=== PATIENT | female | born 1950 | race Caucasian/White ===

== ENCOUNTER → 2017-11-24 15:10 | Outpatient (CLI) | payer BC | END | disposition home or self-care (01) | LOC: D.CT 15:10 | DX: K76.9 Liver disease, unspecified (principal) ==

== ENCOUNTER 2017-12-01 07:33 | Day surgery (SDC) | payer BC ==
[~2017-12-01] VITALS: Ht 170.2 cm; Wt 84.1 kg
--- NOTE | ~2017-12-01 | OP ---
PATIENT NAME: JUSTEN WIN MEDICAL RECORD: [id number] :54 LOCATION:[facility] ADMISSION DATE: SURGEON: JHONNY DEL ROSARIO DO DATE OF OPERATION: 12/01/2017 PROCEDURE: EGD with biopsies. INDICATIONS FOR PROCEDURE: Nausea, decrease in appetite, loss of weight, cirrhosis with portal hypertension. SCOPE: Olympus video gastroscope. MEDICATIONS: Propofol IV per anesthesia. ESTIMATED BLOOD LOSS: Minimal. COMPLICATIONS: None. FINDINGS: Informed consent was given. The patient was made comfortable with the above medication. After reaching an adequate level of sedation by slow IV push, the patient was placed on her left side. The endoscope was then advanced under direct visualization through the mouth to the second portion of the duodenum. The upper and middle esophagus appeared normal. In the middle to distal thirds of the esophagus, there were some grade II esophageal varices without bleeding stigmata. No bands were placed on this examination on this date. At the GE junction, there were some mild changes consistent with LA class B reflux-induced esophagitis. The endoscope was advanced beyond the GE junction into the stomach and retroflexed to view the cardia, where a small sliding hiatal hernia was present. The entire stomach displayed portal hypertensive gastropathy. There was one site that appeared that it had recently oozed some blood, but there was no active bleeding visualized. Two cold forceps biopsies were taken to submit for histology and to rule out H. pylori. The endoscope was advanced beyond the pylorus into the duodenum where there was some duodenitis and portal hypertensive duodenopathy. The endoscope was advanced down to the second portion where there was still some mild evidence of portal hypertensive duodenopathy, but this was improved from the bulb's appearance. The endoscope was then withdrawn from the patient. The patient tolerated the procedure well and there were no complications. IMPRESSION: 1. Grade II esophageal varices without bleeding stigmata. 2. LA class B reflux-induced esophagitis. 3. Portal hypertensive gastropathy and duodenopathy. PLAN AND RECOMMENDATIONS: 1. Discharge home when recovery parameters are met. 2. Follow up biopsy specimen results. 3. Continue low sodium diet. 4. Continue current medications. 5. Add Protonix 40 mg daily while awaiting biopsy results and continue this for 8 weeks. 6. Repeat upper endoscopy in 1 year for esophageal varices surveillance. TRANSINT:[id number] Voice Confirmation ID: [id number] DOCUMENT ID: [id number] OPERATIVE REPORT [id number] JUSTEN WIN,JHONNY Gilmore DO at 0739 CC: [id number] DICTATION DATE: 12/01/17920 METAL GAUGE MAKER: 12/01/17 1119 [facility] 12/01/17 [place] [id number]
[2017-12-01 08:03] VITALS: BP 131/71; Ht 170.2 cm; Wt 84.1 kg
[2017-12-01 09:13] LABS: BASOPHILS 0.2 % (0-2); EOSINOPHILS 1.7 % (0-7); HEMATOCRIT 34.6 % (36.0-48.0); HEMOGLOBIN 11.9 g/dL (12-16); IMMATURE GRANULOCYTES 0.2 % (0-5); LYMPHOCYTES 19.1 % (15-50); MCH 34.4 pg (26.0-34.0); MCHC 34.4 g/dL (31.0-37.0); MEAN PLATELET VOLUME 11.6 fL (7.4-10.4); MONOCYTES 12.7 % (2-11); NEUTROPHILS 66.1 % (40-80); PLATELET COUNT 72 10x3/uL (130-400); RBC 3.46 10x6/uL (4.00-5.40); RDW 14.1 % (11.5-14.5)
[2017-12-01 09:20] LABS: INR 1.59 (0.85-1.17); PROTIME 18.4 SECONDS (11.6-15.0)
[2017-12-01] MEDS ORDERED: ZOFRAN4 MG PO (09:40)
== END 2017-12-01 10:25 | disposition home or self-care (01) ==
LOC: D.OPS 07:33
PROVIDERS: Internal Medicine Gastroenterology
DX: K76.6 Portal hypertension (principal); K31.89 Other diseases of stomach and duodenum; I85.10 Secondary esophageal varices without bleeding; R63.4 Abnormal weight loss; Z01.812 Encounter for preprocedural laboratory examination

== ENCOUNTER 2017-12-03 07:26 | Outpatient (CLI) | payer BC ==
[~2017-12-03] VITALS: Ht 170.2 cm; Wt 84.1 kg
[~2017-12-03 07:26] MED LIST: ZOFRAN4 MG PO
[2017-12-03] MEDS ORDERED: PROTONIX40 MG PO (08:19)
[2017-12-03 08:26] VITALS: Ht 170.2 cm; Wt 84.1 kg
[2017-12-03 09:25] LABS: BASOPHILS 0.3 % (0-2); EOSINOPHILS 1.3 % (0-7); HEMATOCRIT 35.6 % (36.0-48.0); HEMOGLOBIN 12.1 g/dL (12-16); IMMATURE GRANULOCYTES 0.3 % (0-5); LYMPHOCYTES 16.5 % (15-50); MCH 34.5 pg (26.0-34.0); MCV 101.4 fL (80.0-100.0); MEAN PLATELET VOLUME 11.6 fL (7.4-10.4); MONOCYTES 14.1 % (2-11); NEUTROPHILS 67.5 % (40-80); PLATELET COUNT 70 10x3/uL (130-400); RBC 3.51 10x6/uL (4.00-5.40); RDW 14.1 % (11.5-14.5); WBC 3.8 10x3/uL (4.8-10.8)
[2017-12-03 09:28] LABS: CALC OSMOLALITY 279 mosm/kg (275-300); CALCIUM 7.9 mg/dL (8.5-10.1); CARBON DIOXIDE 26.3 mmol/L (21.0-32.0); CHLORIDE - SERUM 108 mmol/L (98-107); CREATININE - SERUM 0.6 mg/dL (0.6-1.3); GLUCOSE 139 mg/dL (74-106); POTASSIUM - SERUM 4.2 mmol/L (3.5-5.1); SODIUM 140 mmol/L (136-145); UREA NITROGEN 10 mg/dL (7-18); eGFR NON AFRICAN AMERICAN > 90 mL/min (90-120)
[2017-12-03 09:29] LABS: APTT 34.5 SECONDS (22.8-39.4); INR 1.31 (0.85-1.17); PROTIME 15.9 SECONDS (11.6-15.0)
== END 2017-12-03 13:00 | disposition home or self-care (01) ==
LOC: D.OPS 07:26 → D.SP 10:00 → D.OPS 10:00
PROVIDERS: Radiology Diagnostic Radiology
DX: R16.0 Hepatomegaly, not elsewhere classified (principal); Z53.9 Procedure and treatment not carried out, unspecified reason; K74.60 Unspecified cirrhosis of liver; Z01.812 Encounter for preprocedural laboratory examination

== ENCOUNTER → 2017-12-10 08:20 | Outpatient (CLI) | payer BC ==
[~2017-12-10 08:20] MED LIST changes: +ALDACTONE25 MG PO; +ALDACTONE50 MG PO; +DIPHENHIST25 MG PO; +FLAGYL250 MG PO; +FLORAJEN3 CAPS460 MG PO; +FUROSEMIDE PO; +LASIX20 MG PO; +LEVAQUIN500 MG PO; +MONODOX100 MG PO; +PEPTO-BISMOL262 M1 PO; +PREDNISONE10 MG PO; +PREDNISONE50 MG PO; +PROTONIX40 MG PO
[2017-12-10 10:32] VITALS: BP 121/65; BMI 29.0
[2017-12-10 11:32] LABS: HEMATOCRIT 34.3 % (36.0-48.0); HEMOGLOBIN 11.8 g/dL (12-16); MCH 34.4 pg (26.0-34.0); MCHC 34.4 g/dL (31.0-37.0); MEAN PLATELET VOLUME 12.5 fL (7.4-10.4); PLATELET COUNT 67 10x3/uL (130-400); RBC 3.43 10x6/uL (4.00-5.40); RDW 14.6 % (11.5-14.5); WBC 2.9 10x3/uL (4.8-10.8)
[2017-12-10 11:39] LABS: CALC OSMOLALITY 276 mosm/kg (275-300); CALCIUM 8.5 mg/dL (8.5-10.1); CHLORIDE - SERUM 105 mmol/L (98-107); CREATININE - SERUM 0.8 mg/dL (0.6-1.3); POTASSIUM - SERUM 4.8 mmol/L (3.5-5.1); SODIUM 135 mmol/L (136-145); UREA NITROGEN 12 mg/dL (7-18); eGFR NON AFRICAN AMERICAN 76 mL/min (90-120)
[2017-12-10 11:40] LABS: GLUCOSE 231 mg/dL (74-106)
[2017-12-10 12:06] LABS: INR 1.39 (0.85-1.17); PROTIME 16.6 SECONDS (11.6-15.0)
[2017-12-10 12:07] LABS: APTT 34.2 SECONDS (22.8-39.4)
[2017-12-10 12:35] LABS: LYMPHOCYTES 17 % (15-50); NEUTROPHILS 82 % (40-80); PLATELET ESTIMATE DECREASED
== END | disposition home or self-care (01) ==
LOC: D.OPS 08:20 → D.SP 09:00 → D.CT 09:00 → D.OPS 11:00 → D.CT 12-11 13:00
PROVIDERS: General Practice
DX: R16.0 Hepatomegaly, not elsewhere classified (principal); Z01.812 Encounter for preprocedural laboratory examination

== ENCOUNTER 2017-12-17 18:49 | Inpatient (IN) | payer BC, MEDICARE ==
[~2017-12-17] VITALS: Ht 170.2 cm; Wt 89.1 kg
[~2017-12-17 18:49] MED LIST changes: -ALDACTONE25 MG PO; -ALDACTONE50 MG PO; -FLORAJEN3 CAPS460 MG PO; -FUROSEMIDE PO; -LASIX20 MG PO; -LEVAQUIN500 MG PO; -PREDNISONE10 MG PO
[2017-12-17 19:30] LABS: BASOPHILS 0.5 % (0-2); EOSINOPHILS 1.8 % (0-7); HEMATOCRIT 37.1 % (36.0-48.0); HEMOGLOBIN 12.5 g/dL (12-16); IMMATURE GRANULOCYTES 0.2 % (0-5); LYMPHOCYTES 21.1 % (15-50); MCH 34.8 pg (26.0-34.0); MCHC 33.7 g/dL (31.0-37.0); MCV 103.3 fL (80.0-100.0); MEAN PLATELET VOLUME 10.5 fL (7.4-10.4); NEUTROPHILS 61.4 % (40-80); RBC 3.59 10x6/uL (4.00-5.40); RDW 14.5 % (11.5-14.5); WBC 4.4 10x3/uL (4.8-10.8)
[2017-12-17 19:48] LABS: ALBUMIN 2.4 g/dL (3.4-5.0); ALKALINE PHOSPHATASE 119 U/L (46-116); ALT (SGPT) 30 U/L (10-68); AMYLASE - SERUM 50 U/L (25-115); BILIRUBIN - TOTAL 1.47 mg/dL (0.2-1.3); CALC OSMOLALITY 277 mosm/kg (275-300); CALCIUM 8.2 mg/dL (8.5-10.1); CARBON DIOXIDE 28.1 mmol/L (21.0-32.0); CHLORIDE - SERUM 105 mmol/L (98-107); CREATININE - SERUM 0.8 mg/dL (0.6-1.3); GLUCOSE 92 mg/dL (74-106); LIPASE 178 U/L (73-393); POTASSIUM - SERUM 3.7 mmol/L (3.5-5.1); PROTEIN - SERUM 6.8 g/dL (6.4-8.2); SODIUM 140 mmol/L (136-145); UREA NITROGEN 10 mg/dL (7-18); eGFR NON AFRICAN AMERICAN 76 mL/min (90-120)
[2017-12-17 20:11] LABS: PLATELET COUNT 83 10x3/uL (130-400)
[2017-12-17 20:18] LABS: APPEARANCE CLEAR (CLEAR); BILIRUBIN NEGATIVE (NEGATIVE); COLOR DK YELLOW (YELLOW); GLUCOSE NEGATIVE (NEGATIVE); KETONE NEGATIVE (NEGATIVE); NITRITE NEGATIVE (NEGATIVE); PROTEIN NEGATIVE (NEGATIVE); SPECIFIC GRAVITY 1.015 (1.005-1.020); UROBILINOGEN NORMAL (NORMAL)
[2017-12-17 20:18] LABS: APTT 34.5 SECONDS (22.8-39.4); INR 1.42 (0.85-1.17); PROTIME 16.9 SECONDS (11.6-15.0)
[2017-12-18] VITALS (8 sets, daily range): BP systolic 122–149; BP diastolic 39–85; Ht 170.2 cm; Wt 89.1 kg
[2017-12-18 06:11] LABS: BASOPHILS 0.3 % (0-2); EOSINOPHILS 1.8 % (0-7); HEMATOCRIT 34.3 % (36.0-48.0); HEMOGLOBIN 11.3 g/dL (12-16); IMMATURE GRANULOCYTES 0.3 % (0-5); LYMPHOCYTES 19.9 % (15-50); MCH 34.1 pg (26.0-34.0); MCHC 32.9 g/dL (31.0-37.0); MCV 103.6 fL (80.0-100.0); MEAN PLATELET VOLUME 10.6 fL (7.4-10.4); MONOCYTES 16.2 % (2-11); NEUTROPHILS 61.5 % (40-80); PLATELET COUNT 79 10x3/uL (130-400); RBC 3.31 10x6/uL (4.00-5.40); RDW 14.8 % (11.5-14.5); WBC 3.3 10x3/uL (4.8-10.8)
[2017-12-18 06:42] LABS: ALKALINE PHOSPHATASE 91 U/L (46-116); ALT (SGPT) 27 U/L (10-68); CALC OSMOLALITY 276 mosm/kg (275-300); CALCIUM 7.4 mg/dL (8.5-10.1); CARBON DIOXIDE 24.9 mmol/L (21.0-32.0); CHLORIDE - SERUM 107 mmol/L (98-107); CREATININE - SERUM 0.8 mg/dL (0.6-1.3); GLUCOSE 80 mg/dL (74-106); POTASSIUM - SERUM 3.5 mmol/L (3.5-5.1); PROTEIN - SERUM 5.8 g/dL (6.4-8.2); SODIUM 140 mmol/L (136-145); UREA NITROGEN 10 mg/dL (7-18); eGFR NON AFRICAN AMERICAN 76 mL/min (90-120)
[2017-12-19 04:00] VITALS: BP 125/77
[2017-12-19 05:48] LABS: BASOPHILS 0.3 % (0-2); EOSINOPHILS 1.2 % (0-7); HEMATOCRIT 34.2 % (36.0-48.0); HEMOGLOBIN 11.1 g/dL (12-16); LYMPHOCYTES 19.8 % (15-50); MCH 33.8 pg (26.0-34.0); MCHC 32.5 g/dL (31.0-37.0); MCV 104.3 fL (80.0-100.0); MEAN PLATELET VOLUME 10.4 fL (7.4-10.4); MONOCYTES 16.2 % (2-11); NEUTROPHILS 62.5 % (40-80); PLATELET COUNT 77 10x3/uL (130-400); RBC 3.28 10x6/uL (4.00-5.40); RDW 14.6 % (11.5-14.5); WBC 3.3 10x3/uL (4.8-10.8)
[2017-12-19 06:08] LABS: ALBUMIN 1.9 g/dL (3.4-5.0); ALKALINE PHOSPHATASE 111 U/L (46-116); ALT (SGPT) 25 U/L (10-68); BILIRUBIN - TOTAL 1.06 mg/dL (0.2-1.3); CALC OSMOLALITY 278 mosm/kg (275-300); CALCIUM 7.7 mg/dL (8.5-10.1); CHLORIDE - SERUM 108 mmol/L (98-107); CREATININE - SERUM 0.8 mg/dL (0.6-1.3); PROTEIN - SERUM 5.6 g/dL (6.4-8.2); SODIUM 139 mmol/L (136-145); UREA NITROGEN 10 mg/dL (7-18); eGFR NON AFRICAN AMERICAN 76 mL/min (90-120)
[2017-12-19 06:11] LABS: GLUCOSE 133 mg/dL (74-106)
[2017-12-19 07:30] VITALS: BP 113/64
[2017-12-19 15:43] VITALS: BP 138/64
[2017-12-20 06:37] VITALS: BP 114/61
[2017-12-20 07:08] LABS: HEMATOCRIT 33.8 % (36.0-48.0); HEMOGLOBIN 11.1 g/dL (12-16); MCH 33.6 pg (26.0-34.0); MCHC 32.8 g/dL (31.0-37.0); MCV 102.4 fL (80.0-100.0); MEAN PLATELET VOLUME 10.7 fL (7.4-10.4); PLATELET COUNT 64 10x3/uL (130-400); RDW 14.1 % (11.5-14.5); WBC 2.8 10x3/uL (4.8-10.8)
[2017-12-20 07:25] LABS: ALBUMIN 1.8 g/dL (3.4-5.0); ALKALINE PHOSPHATASE 97 U/L (46-116); ALT (SGPT) 26 U/L (10-68); CALC OSMOLALITY 276 mosm/kg (275-300); CALCIUM 7.4 mg/dL (8.5-10.1); CARBON DIOXIDE 25.5 mmol/L (21.0-32.0); CHLORIDE - SERUM 107 mmol/L (98-107); GLUCOSE 100 mg/dL (74-106); POTASSIUM - SERUM 3.5 mmol/L (3.5-5.1); PROTEIN - SERUM 5.6 g/dL (6.4-8.2); SODIUM 139 mmol/L (136-145); UREA NITROGEN 10 mg/dL (7-18)
[2017-12-20 07:27] LABS: CREATININE - SERUM 0.5 mg/dL (0.6-1.3); eGFR NON AFRICAN AMERICAN > 90 mL/min (90-120)
[2017-12-20 08:28] LABS: EOSINOPHILS 1 % (0-7); LYMPHOCYTES 19 % (15-50); MONOCYTES 5 % (2-11); NEUTROPHILS 74 % (40-80); PLATELET ESTIMATE DECREASED
[2017-12-20 08:44] VITALS: BP 133/68
[2017-12-20 11:49] VITALS: BP 119/65
[2017-12-20 17:00] VITALS: BP 118/63
[2017-12-20 19:00] VITALS: BP 113/62
[2017-12-21] VITALS: BP 127/70
[2017-12-21 04:00] VITALS: BP 130/67
[2017-12-21 05:09] LABS: BASOPHILS 0 % (0-2); EOSINOPHILS 0.5 % (0-7); HEMATOCRIT 36.1 % (36.0-48.0); HEMOGLOBIN 12.2 g/dL (12-16); LYMPHOCYTES 13.7 % (15-50); MCH 34.3 pg (26.0-34.0); MCHC 33.8 g/dL (31.0-37.0); MCV 101.4 fL (80.0-100.0); MEAN PLATELET VOLUME 10.8 fL (7.4-10.4); MONOCYTES 3.3 % (2-11); NEUTROPHILS 82.5 % (40-80); PLATELET COUNT 59 10x3/uL (130-400); RBC 3.56 10x6/uL (4.00-5.40); RDW 14.2 % (11.5-14.5); WBC 2.1 10x3/uL (4.8-10.8)
[2017-12-21 05:28] LABS: ALBUMIN 2.1 g/dL (3.4-5.0); ALKALINE PHOSPHATASE 118 U/L (46-116); CALCIUM 7.8 mg/dL (8.5-10.1); CARBON DIOXIDE 26.1 mmol/L (21.0-32.0); CHLORIDE - SERUM 105 mmol/L (98-107); CREATININE - SERUM 0.6 mg/dL (0.6-1.3); PROTEIN - SERUM 6.2 g/dL (6.4-8.2); SODIUM 136 mmol/L (136-145); UREA NITROGEN 11 mg/dL (7-18); eGFR NON AFRICAN AMERICAN > 90 mL/min (90-120)
[2017-12-21 05:34] LABS: ALT (SGPT) 34 U/L (10-68); CALC OSMOLALITY 276 mosm/kg (275-300); GLUCOSE 207 mg/dL (74-106); POTASSIUM - SERUM 4.1 mmol/L (3.5-5.1)
[2017-12-21 08:26] VITALS: BP 137/75
[2017-12-21 11:37] VITALS: BP 126/72
[2017-12-21] MEDS ORDERED: ALDACTONE25 MG PO (12:56)
[2017-12-21] MEDS ORDERED: PREDNISONE10 MG PO ×2 (12:56→14:18)
[2017-12-21] MEDS ORDERED: FLORAJEN3 CAPS460 MG PO (12:56)
[2017-12-21] MEDS ORDERED: LASIX20 MG PO (12:56)
[2017-12-21] MEDS ORDERED: LEVAQUIN500 MG PO ×2 (12:56→14:18)
[2018-02-19] MEDS ORDERED: FUROSEMIDE PO (13:20)
[2018-02-19] MEDS ORDERED: ALDACTONE50 MG PO (13:23)
== END 2017-12-21 14:16 | disposition home or self-care (01) | DRG 186 ==
LOC: D.ER 18:49 → D.M2 21:03 → OBSVTIME 21:03 → D.EDHOLD 21:03 → D.M2 23:12
PROVIDERS: Emergency Medicine; Family Medicine; Specialist
PROC: 0W9B3ZZ Drainage of Left Pleural Cavity, Percutaneous Approach (ICD-10-PCS; principal; 2017-12-18 13:40)
DX: J90 Pleural effusion, not elsewhere classified (principal); J18.9 Pneumonia, unspecified organism; R18.8 Other ascites; K74.60 Unspecified cirrhosis of liver; R16.0 Hepatomegaly, not elsewhere classified

== ENCOUNTER 2018-01-05 06:20 | Day surgery (SDC) | payer BC ==
[~2018-01-05] VITALS: Ht 170.2 cm; Wt 84.1 kg
--- NOTE | ~2018-01-05 | OP ---
PATIENT NAME: JUSTEN WIN MEDICAL RECORD: [id number] :54 LOCATION:[facility] ADMISSION DATE: SURGEON: JHONNY DEL ROSARIO DO DATE OF OPERATION: 01/05/2018 PROCEDURE: Colonoscopy with biopsy, polypectomy, and injection. INDICATIONS FOR PROCEDURE: Hematochezia, loss of weight. SCOPE: Olympus video pediatric colonoscope. MEDICATIONS: Propofol 700 mg IV per anesthesia. WITHDRAWAL TIME: 22 minutes. ESTIMATED BLOOD LOSS: Less than 3 mL. COMPLICATIONS: None. FINDINGS: Informed consent was given. The patient was made comfortable with the above medication. After reaching an adequate level of sedation by slow IV push, the patient was placed on her left side. A digital rectal examination was performed and was normal. The endoscope was then advanced under direct visualization through the rectum to the cecum with visualization of the ileocecal valve and appendiceal orifice. The prep quality was poor in the ascending colon and cecum, but otherwise adequate. The most significant finding on this examination was a mass that was visualized at 65 to 70 cm. It was ulcerated, friable, and bleeding on contact. It was approximately 5 cm in length and involved 100% of the circumference of the colon. It did occlude the luminal diameter down to approximately 10 mm making passage of the endoscope difficult. The site was traversed, however. After taking multiple cold forceps biopsies, tattoo was injected both proximally and distally to the mass for further interventions. On further withdrawal, there was a transverse polyp, which was benign appearing and sessile, measuring approximately 4 mm in diameter. It was located in the transverse colon and was removed using hot forceps in one piece and completely retrieved. In the descending colon, there were four separate larger polyps, which ranged in size from 6 mm to 1.2 cm. These were all removed using hot snare in one piece and completely retrieved. There was evidence of mild diverticulosis involving the descending and sigmoid colon without evidence of diverticulitis. Retroflexion was performed in the rectum with visualization of grade I nonbleeding internal hemorrhoids. The endoscope was withdrawn from the patient. The patient tolerated the procedure well and there were no complications. IMPRESSION: 1. Multiple polyps as described above, removed using hot forceps and hot snare. 2. Diverticulosis. 3. Grade I internal hemorrhoids without bleeding. 4. A colonic mass located at 65-70 cm. This was biopsied and tattooed. PLAN AND RECOMMENDATIONS: 1. Discharge home when recovery parameters are met. 2. Follow up biopsy specimen results. 3. We will make a referral to surgery and oncology regarding the colon mass. 4. The patient will need some form of imaging for staging purposes. I will OPERATIVE REPORT [id number] JUSTEN WIN defer this to oncology in case a PET scan is wanted with a CT. 5. High fiber diet. 6. Continue current medications. TRANSINT:[id number] Voice Confirmation ID: [id number] DOCUMENT ID: [id number] JHONNY DEL ROSARIO DO at 1135 CC: [id number] DICTATION DATE: 01/05/18913 MANAGER PRODUCTION: 01/05/18 1125 [facility] 01/05/[address] [id number]
[~2018-01-05 06:20] MED LIST changes: +ALDACTONE25 MG PO; +FLORAJEN3 CAPS460 MG PO; +LASIX20 MG PO; +LEVAQUIN500 MG PO; +PREDNISONE10 MG PO
[2018-01-05 07:14] VITALS: BP 138/72; Ht 170.2 cm; Wt 84.1 kg
[2018-01-05 07:50] LABS: HEMATOCRIT 39.1 % (36.0-48.0); HEMOGLOBIN 13.3 g/dL (12-16); MCH 33.8 pg (26.0-34.0); MCV 99.2 fL (80.0-100.0); MEAN PLATELET VOLUME 11.7 fL (7.4-10.4); RBC 3.94 10x6/uL (4.00-5.40); RDW 14.4 % (11.5-14.5); WBC 4.9 10x3/uL (4.8-10.8)
[2018-01-05 08:03] LABS: APTT 32.4 SECONDS (22.8-39.4); INR 1.28 (0.85-1.17); PROTIME 15.5 SECONDS (11.6-15.0)
[2018-01-05 08:09] LABS: ALBUMIN 2.7 g/dL (3.4-5.0); BILIRUBIN - TOTAL 3.43 mg/dL (0.2-1.3); CALCIUM 8.8 mg/dL (8.5-10.1); CARBON DIOXIDE 23.8 mmol/L (21.0-32.0); CREATININE - SERUM 0.9 mg/dL (0.6-1.3); POTASSIUM - SERUM 3.8 mmol/L (3.5-5.1); PROTEIN - SERUM 7.1 g/dL (6.4-8.2)
[2018-02-19] MEDS ORDERED: FUROSEMIDE PO (13:20)
[2018-02-19] MEDS ORDERED: ALDACTONE50 MG PO (13:23)
== END 2018-01-05 10:38 | disposition home or self-care (01) ==
LOC: D.OPS 06:20
PROVIDERS: Anesthesiology
DX: C18.6 Malignant neoplasm of descending colon (principal); K63.5 Polyp of colon; D12.4 Benign neoplasm of descending colon; K57.30 Diverticulosis of large intestine without perforation or abscess without bleeding; K64.0 First degree hemorrhoids; Z01.812 Encounter for preprocedural laboratory examination

== ENCOUNTER 2018-02-20 07:26 | Inpatient (IN) | payer BC ==
[~2018-02-20] VITALS: Ht 170.2 cm; Wt 79.8 kg
[~2018-02-20 07:26] MED LIST changes: +ALDACTONE50 MG PO; +FUROSEMIDE PO
[2018-02-20 08:42] VITALS: BMI 29.0
[2018-02-20 09:06] LABS: BASOPHILS 0.5 % (0-2); EOSINOPHILS 0.9 % (0-7); HEMATOCRIT 37.3 % (36.0-48.0); HEMOGLOBIN 13.2 g/dL (12-16); LYMPHOCYTES 14.6 % (15-50); MCH 34.7 pg (26.0-34.0); MCHC 35.4 g/dL (31.0-37.0); MCV 98.2 fL (80.0-100.0); MEAN PLATELET VOLUME 11.3 fL (7.4-10.4); MONOCYTES 13.2 % (2-11); NEUTROPHILS 70.8 % (40-80); PLATELET COUNT 87 10x3/uL (130-400); RDW 13.9 % (11.5-14.5); WBC 4.4 10x3/uL (4.8-10.8)
[2018-02-20 09:18] LABS: APTT 32.9 SECONDS (22.8-39.4); INR 1.31 (0.85-1.17); PROTIME 15.8 SECONDS (11.6-15.0)
[2018-02-20 09:25] LABS: PLATELET ESTIMATE DECREASED
[2018-02-20 14:44] LABS: BASOPHILS 0.3 % (0-2); EOSINOPHILS 0.4 % (0-7); HEMATOCRIT 30.5 % (36.0-48.0); IMMATURE GRANULOCYTES 0.3 % (0-5); LYMPHOCYTES 16.3 % (15-50); MCH 33.9 pg (26.0-34.0); MCHC 34.4 g/dL (31.0-37.0); MCV 98.4 fL (80.0-100.0); MEAN PLATELET VOLUME 10.9 fL (7.4-10.4); MONOCYTES 4.7 % (2-11); PLATELET COUNT 82 10x3/uL (130-400); RDW 13.9 % (11.5-14.5); WBC 7.3 10x3/uL (4.8-10.8)
[2018-02-20 14:45] LABS: HEMOGLOBIN 10.5 g/dL (12-16)
[2018-02-20 19:00] VITALS: BP 125/55; BP 137/58
[2018-02-20 20:00] VITALS: BP 134/69
[2018-02-20 21:00] VITALS: BP 138/67
[2018-02-20 22:00] VITALS: BP 126/66
[2018-02-20 23:00] VITALS: BP 121/69
[2018-02-21] VITALS (24 sets, daily range): BP systolic 103–135; BP diastolic 45–90; BMI 28.2
[2018-02-21 03:26] LABS: BASOPHILS 0.1 % (0-2); EOSINOPHILS 0 % (0-7); HEMATOCRIT 31.5 % (36.0-48.0); HEMOGLOBIN 10.5 g/dL (12-16); IMMATURE GRANULOCYTES 0.2 % (0-5); LYMPHOCYTES 2.5 % (15-50); MCH 32.8 pg (26.0-34.0); MCHC 33.3 g/dL (31.0-37.0); MCV 98.4 fL (80.0-100.0); MEAN PLATELET VOLUME 10.5 fL (7.4-10.4); MONOCYTES 8.3 % (2-11); NEUTROPHILS 88.9 % (40-80); RDW 17.4 % (11.5-14.5)
[2018-02-21 03:27] LABS: PLATELET COUNT 129 10x3/uL (130-400); WBC 15.8 10x3/uL (4.8-10.8)
[2018-02-21 03:36] LABS: ALBUMIN 2.2 g/dL (3.4-5.0); ANION GAP 21.8 mmol/L (8-16); BILIRUBIN - TOTAL 2.96 mg/dL (0.2-1.3); CARBON DIOXIDE 15.3 mmol/L (21.0-32.0); CREATININE - SERUM 1.4 mg/dL (0.6-1.3); MAGNESIUM - SERUM 1.8 mg/dL (1.8-2.4); PHOSPHOROUS 4.9 mg/dL (2.5-4.9); POTASSIUM - SERUM 5.1 mmol/L (3.5-5.1); PROTEIN - SERUM 6.1 g/dL (6.4-8.2)
[2018-02-22] VITALS (24 sets, daily range): BP systolic 107–159; BP diastolic 57–82
[2018-02-23] VITALS (20 sets, daily range): BP systolic 106–165; BP diastolic 61–86
[2018-02-23 03:25] LABS: BASOPHILS 0 % (0-2); EOSINOPHILS 0.1 % (0-7); HEMATOCRIT 26.7 % (36.0-48.0); HEMOGLOBIN 9.2 g/dL (12-16); IMMATURE GRANULOCYTES 0.2 % (0-5); LYMPHOCYTES 8.1 % (15-50); MCH 33.2 pg (26.0-34.0); MCHC 34.5 g/dL (31.0-37.0); MCV 96.4 fL (80.0-100.0); MEAN PLATELET VOLUME 9.9 fL (7.4-10.4); MONOCYTES 11.1 % (2-11); NEUTROPHILS 80.5 % (40-80); RBC 2.77 10x6/uL (4.00-5.40); RDW 16.6 % (11.5-14.5); WBC 8.6 10x3/uL (4.8-10.8)
[2018-02-23 03:35] LABS: PLATELET COUNT 71 10x3/uL (130-400)
[2018-02-23 03:39] LABS: ALBUMIN 1.8 g/dL (3.4-5.0); ANION GAP 10.2 mmol/L (8-16); BILIRUBIN - TOTAL 1.55 mg/dL (0.2-1.3); CALCIUM 8.2 mg/dL (8.5-10.1); CARBON DIOXIDE 23.3 mmol/L (21.0-32.0); CREATININE - SERUM 0.9 mg/dL (0.6-1.3); POTASSIUM - SERUM 4.5 mmol/L (3.5-5.1); PROTEIN - SERUM 4.9 g/dL (6.4-8.2)
[2018-02-23 15:18] LABS: HEMATOCRIT 27.7 % (36.0-48.0); HEMOGLOBIN 9.5 g/dL (12-16)
[2018-02-24] VITALS (9 sets, daily range): BP systolic 100–138; BP diastolic 58–85
[2018-02-24 04:39] LABS: BASOPHILS 0.1 % (0-2); EOSINOPHILS 0.9 % (0-7); HEMATOCRIT 29.2 % (36.0-48.0); HEMOGLOBIN 9.8 g/dL (12-16); IMMATURE GRANULOCYTES 0.2 % (0-5); MCH 32.9 pg (26.0-34.0); MCHC 33.6 g/dL (31.0-37.0); MEAN PLATELET VOLUME 10.3 fL (7.4-10.4); MONOCYTES 12.5 % (2-11); NEUTROPHILS 74.3 % (40-80); RBC 2.98 10x6/uL (4.00-5.40); RDW 16.4 % (11.5-14.5); WBC 8.5 10x3/uL (4.8-10.8)
[2018-02-24 04:41] LABS: PLATELET COUNT 86 10x3/uL (130-400)
[2018-02-24 04:52] LABS: ALBUMIN 1.9 g/dL (3.4-5.0); CALCIUM 8.6 mg/dL (8.5-10.1); CARBON DIOXIDE 25.4 mmol/L (21.0-32.0); CREATININE - SERUM 0.9 mg/dL (0.6-1.3); MAGNESIUM - SERUM 1.8 mg/dL (1.8-2.4); PHOSPHOROUS 3.4 mg/dL (2.5-4.9); POTASSIUM - SERUM 4.4 mmol/L (3.5-5.1); PROTEIN - SERUM 5.4 g/dL (6.4-8.2)
[2018-02-25 05:18] LABS: BASOPHILS 0.1 % (0-2); EOSINOPHILS 0.5 % (0-7); HEMATOCRIT 31.9 % (36.0-48.0); HEMOGLOBIN 10.9 g/dL (12-16); IMMATURE GRANULOCYTES 0.4 % (0-5); LYMPHOCYTES 7.2 % (15-50); MCH 32.9 pg (26.0-34.0); MCHC 34.2 g/dL (31.0-37.0); MCV 96.4 fL (80.0-100.0); MONOCYTES 9.6 % (2-11); NEUTROPHILS 82.2 % (40-80); PLATELET COUNT 93 10x3/uL (130-400); RBC 3.31 10x6/uL (4.00-5.40); RDW 16.8 % (11.5-14.5); WBC 10.6 10x3/uL (4.8-10.8)
[2018-02-25 05:48] LABS: ALBUMIN 1.9 g/dL (3.4-5.0); ANION GAP 14.9 mmol/L (8-16); BILIRUBIN - TOTAL 2.7 mg/dL (0.2-1.3); CALCIUM 9.1 mg/dL (8.5-10.1); CARBON DIOXIDE 21.8 mmol/L (21.0-32.0); POTASSIUM - SERUM 4.7 mmol/L (3.5-5.1); PROTEIN - SERUM 5.6 g/dL (6.4-8.2)
[2018-02-25 05:53] LABS: PHOSPHOROUS 4.5 mg/dL (2.5-4.9)
[2018-02-25 07:59] VITALS: BP 150/72
[2018-02-25 12:14] VITALS: BP 150/66
[2018-02-25 15:51] VITALS: BP 139/62
[2018-02-25 19:58] VITALS: BP 139/71
[2018-02-26 02:00] VITALS: BP 142/74
[2018-02-26 03:56] VITALS: BP 159/78
[2018-02-26 06:00] LABS: BASOPHILS 0.1 % (0-2); EOSINOPHILS 0.9 % (0-7); HEMATOCRIT 31.7 % (36.0-48.0); IMMATURE GRANULOCYTES 0.4 % (0-5); LYMPHOCYTES 7.1 % (15-50); MCH 33.5 pg (26.0-34.0); MCHC 34.7 g/dL (31.0-37.0); MCV 96.6 fL (80.0-100.0); MEAN PLATELET VOLUME 9.6 fL (7.4-10.4); MONOCYTES 15.2 % (2-11); NEUTROPHILS 76.3 % (40-80); PLATELET COUNT 110 10x3/uL (130-400); RBC 3.28 10x6/uL (4.00-5.40); WBC 12.8 10x3/uL (4.8-10.8)
[2018-02-26 06:37] LABS: ALBUMIN 1.9 g/dL (3.4-5.0); ANION GAP 13.8 mmol/L (8-16); BILIRUBIN - TOTAL 2.2 mg/dL (0.2-1.3); CALCIUM 8.6 mg/dL (8.5-10.1); CARBON DIOXIDE 22.4 mmol/L (21.0-32.0); CREATININE - SERUM 0.9 mg/dL (0.6-1.3); POTASSIUM - SERUM 4.2 mmol/L (3.5-5.1); PROTEIN - SERUM 5.7 g/dL (6.4-8.2)
[2018-02-26 08:32] VITALS: BP 152/74
[2018-02-26 12:30] VITALS: BP 145/71
[2018-02-26 16:26] VITALS: BP 150/71
[2018-02-26 22:29] VITALS: BP 174/74
[2018-02-27 04:53] VITALS: BP 164/68
[2018-02-27 08:26] VITALS: BP 150/78
[2018-02-27 12:47] VITALS: BP 153/78
[2018-02-27 16:17] VITALS: BP 152/70
[2018-02-27 20:00] VITALS: BP 148/70
[2018-02-28] VITALS: BP 145/61
[2018-02-28 04:00] VITALS: BP 140/66
[2018-02-28 07:42] VITALS: BP 146/69
[2018-02-28 11:05] LABS: BASOPHILS 0.1 % (0-2); EOSINOPHILS 0.5 % (0-7); HEMATOCRIT 33.9 % (36.0-48.0); HEMOGLOBIN 11.2 g/dL (12-16); IMMATURE GRANULOCYTES 0.3 % (0-5); LYMPHOCYTES 5.5 % (15-50); MCH 33.6 pg (26.0-34.0); MCV 101.8 fL (80.0-100.0); MEAN PLATELET VOLUME 9.9 fL (7.4-10.4); NEUTROPHILS 82.6 % (40-80); PLATELET COUNT 93 10x3/uL (130-400); RBC 3.33 10x6/uL (4.00-5.40); RDW 18.2 % (11.5-14.5); WBC 13.1 10x3/uL (4.8-10.8)
[2018-02-28 11:16] LABS: ANION GAP 12.1 mmol/L (8-16); CALCIUM 9.3 mg/dL (8.5-10.1); CARBON DIOXIDE 29.2 mmol/L (21.0-32.0); CREATININE - SERUM 1.4 mg/dL (0.6-1.3); MAGNESIUM - SERUM 2.4 mg/dL (1.8-2.4); POTASSIUM - SERUM 4.3 mmol/L (3.5-5.1)
[2018-02-28 12:18] VITALS: BP 143/77
[2018-02-28 15:49] VITALS: BP 145/70
[2018-02-28 20:00] VITALS: BP 144/57
[2018-03-01] VITALS: BP 150/61
[2018-03-01 04:00] VITALS: BP 117/56
[2018-03-01 05:41] LABS: BASOPHILS 0.1 % (0-2); EOSINOPHILS 0.2 % (0-7); HEMATOCRIT 30.7 % (36.0-48.0); HEMOGLOBIN 9.8 g/dL (12-16); IMMATURE GRANULOCYTES 0.2 % (0-5); LYMPHOCYTES 6.7 % (15-50); MCH 32.8 pg (26.0-34.0); MCHC 31.9 g/dL (31.0-37.0); MCV 102.7 fL (80.0-100.0); MEAN PLATELET VOLUME 10.2 fL (7.4-10.4); MONOCYTES 10.1 % (2-11); NEUTROPHILS 82.7 % (40-80); RBC 2.99 10x6/uL (4.00-5.40); RDW 18.3 % (11.5-14.5)
[2018-03-01 05:42] LABS: PLATELET COUNT 74 10x3/uL (130-400); WBC 8.4 10x3/uL (4.8-10.8)
[2018-03-01 05:45] LABS: ANION GAP 6.4 mmol/L (8-16); CALCIUM 8.9 mg/dL (8.5-10.1); CARBON DIOXIDE 28.7 mmol/L (21.0-32.0); CREATININE - SERUM 1.3 mg/dL (0.6-1.3); MAGNESIUM - SERUM 2.3 mg/dL (1.8-2.4); POTASSIUM - SERUM 4.1 mmol/L (3.5-5.1)
[2018-03-01 08:21] VITALS: BP 134/78
[2018-03-01 16:35] VITALS: BP 161/59
[2018-03-02 04:20] VITALS: BP 134/54
[2018-03-02 05:47] LABS: BASOPHILS 0.1 % (0-2); EOSINOPHILS 0.4 % (0-7); HEMATOCRIT 30.2 % (36.0-48.0); HEMOGLOBIN 9.9 g/dL (12-16); IMMATURE GRANULOCYTES 0.2 % (0-5); LYMPHOCYTES 9.4 % (15-50); MCH 33.1 pg (26.0-34.0); MCHC 32.8 g/dL (31.0-37.0); MONOCYTES 10.1 % (2-11); NEUTROPHILS 79.8 % (40-80); PLATELET COUNT 81 10x3/uL (130-400); RBC 2.99 10x6/uL (4.00-5.40); RDW 18.3 % (11.5-14.5); WBC 9.5 10x3/uL (4.8-10.8)
[2018-03-02 06:04] LABS: INR 1.71 (0.85-1.17); PROTIME 19.5 SECONDS (11.6-15.0)
[2018-03-02 06:18] LABS: ANION GAP 11.8 mmol/L (8-16); CALCIUM 8.7 mg/dL (8.5-10.1); CARBON DIOXIDE 27.8 mmol/L (21.0-32.0); CREATININE - SERUM 1.4 mg/dL (0.6-1.3); POTASSIUM - SERUM 3.6 mmol/L (3.5-5.1); PRE-ALBUMIN 6.1 mg/dL (18.0-35.7)
[2018-03-02 08:23] VITALS: BP 138/64
[2018-03-02 12:49] LABS: MAGNESIUM - SERUM 2.7 mg/dL (1.8-2.4); PHOSPHOROUS 2.3 mg/dL (2.5-4.9)
[2018-03-02 13:53] VITALS: BP 132/69
[2018-03-02 16:41] VITALS: BP 137/77
[2018-03-02 19:17] VITALS: Ht 170.2 cm; Wt 79.8 kg
[2018-03-02 21:26] VITALS: BP 162/85
[2018-03-03 02:09] VITALS: BP 158/88
[2018-03-03 05:22] LABS: BASOPHILS 0.1 % (0-2); HEMATOCRIT 30.3 % (36.0-48.0); HEMOGLOBIN 9.8 g/dL (12-16); IMMATURE GRANULOCYTES 0.1 % (0-5); LYMPHOCYTES 8.9 % (15-50); MCH 32.8 pg (26.0-34.0); MCHC 32.3 g/dL (31.0-37.0); MCV 101.3 fL (80.0-100.0); MEAN PLATELET VOLUME 10.4 fL (7.4-10.4); MONOCYTES 11.4 % (2-11); NEUTROPHILS 78.5 % (40-80); RBC 2.99 10x6/uL (4.00-5.40); RDW 17.8 % (11.5-14.5); WBC 9.1 10x3/uL (4.8-10.8)
[2018-03-03 05:23] LABS: PLATELET COUNT 62 10x3/uL (130-400)
[2018-03-03 05:24] VITALS: BP 137/47
[2018-03-03 05:43] LABS: ANION GAP 9.1 mmol/L (8-16); CALCIUM 8.5 mg/dL (8.5-10.1); CARBON DIOXIDE 28.3 mmol/L (21.0-32.0); CREATININE - SERUM 1.3 mg/dL (0.6-1.3); POTASSIUM - SERUM 3.4 mmol/L (3.5-5.1)
[2018-03-03 07:34] LABS: MAGNESIUM - SERUM 2.4 mg/dL (1.8-2.4); PHOSPHOROUS 2.7 mg/dL (2.5-4.9)
[2018-03-03 08:48] VITALS: BP 148/66
[2018-03-03 13:12] VITALS: BP 135/66
[2018-03-03 16:45] VITALS: BP 113/70
[2018-03-03 20:39] VITALS: BP 189/92
[2018-03-04 04:57] VITALS: BP 164/86
[2018-03-04 07:08] LABS: BASOPHILS 0.1 % (0-2); EOSINOPHILS 1.5 % (0-7); HEMATOCRIT 30.7 % (36.0-48.0); HEMOGLOBIN 10.1 g/dL (12-16); IMMATURE GRANULOCYTES 0.2 % (0-5); LYMPHOCYTES 7.3 % (15-50); MCHC 32.9 g/dL (31.0-37.0); MCV 100.3 fL (80.0-100.0); MEAN PLATELET VOLUME 11.5 fL (7.4-10.4); MONOCYTES 12.5 % (2-11); NEUTROPHILS 78.4 % (40-80); PLATELET COUNT 59 10x3/uL (130-400); RBC 3.06 10x6/uL (4.00-5.40); RDW 17.2 % (11.5-14.5)
[2018-03-04 07:09] LABS: WBC 13.4 10x3/uL (4.8-10.8)
[2018-03-04 07:23] LABS: ANION GAP 9.2 mmol/L (8-16); CALCIUM 8.1 mg/dL (8.5-10.1); CARBON DIOXIDE 27.1 mmol/L (21.0-32.0); MAGNESIUM - SERUM 2.2 mg/dL (1.8-2.4); PHOSPHOROUS 2.5 mg/dL (2.5-4.9); POTASSIUM - SERUM 3.3 mmol/L (3.5-5.1)
[2018-03-04 09:05] LABS: APPEARANCE SLT CLOUDY (CLEAR); COLOR DK YELLOW (YELLOW); SPECIFIC GRAVITY 1.015 (1.005-1.020)
[2018-03-04 09:06] LABS: BACTERIA MANY /hpf (NONE SEEN); BILIRUBIN 1+ (NEGATIVE); GLUCOSE NEGATIVE (NEGATIVE); KETONE NEGATIVE (NEGATIVE); MUCUS <1+ /lpf (NONE SEEN); NITRITE POSITIVE (NEGATIVE); PROTEIN NEGATIVE (NEGATIVE); RED CELLS - URINE 0-5 /hpf (0-5); YEAST >1+ WITH HYPHAE /hpf (NONE SEEN)
[2018-03-04 09:36] VITALS: BP 132/72
[2018-03-04 11:20] LABS: ALPHA FETOPROTEIN -(TUMOR MRK) 2.7 ng/mL (0.0-8.3)
[2018-03-04 13:39] VITALS: BP 135/68
[2018-03-04 16:25] VITALS: BP 127/62
[2018-03-04 20:48] VITALS: BP 132/65
[2018-03-05 04:45] VITALS: BP 158/79
[2018-03-05 06:13] LABS: BASOPHILS 0.1 % (0-2); EOSINOPHILS 1.2 % (0-7); HEMATOCRIT 30.3 % (36.0-48.0); IMMATURE GRANULOCYTES 0.5 % (0-5); LYMPHOCYTES 4.3 % (15-50); MCH 33.1 pg (26.0-34.0); MCV 100.3 fL (80.0-100.0); MEAN PLATELET VOLUME 12.8 fL (7.4-10.4); NEUTROPHILS 81.9 % (40-80); PLATELET COUNT 53 10x3/uL (130-400); RBC 3.02 10x6/uL (4.00-5.40)
[2018-03-05 06:24] LABS: WBC 17.7 10x3/uL (4.8-10.8)
[2018-03-05 06:32] LABS: ANION GAP 10.9 mmol/L (8-16); CALCIUM 7.5 mg/dL (8.5-10.1); CARBON DIOXIDE 24.5 mmol/L (21.0-32.0); MAGNESIUM - SERUM 2.4 mg/dL (1.8-2.4); PHOSPHOROUS 2.8 mg/dL (2.5-4.9); POTASSIUM - SERUM 3.4 mmol/L (3.5-5.1)
[2018-03-05 08:04] VITALS: BP 130/66
[2018-03-05 11:08] VITALS: BP 138/70
[2018-03-05 15:41] VITALS: BP 138/63
[2018-03-05 20:27] VITALS: BP 138/74
[2018-03-05 23:35] VITALS: BP 136/74
[2018-03-06 04:27] VITALS: BP 101/55
[2018-03-06 06:21] LABS: HEMATOCRIT 30.8 % (36.0-48.0); HEMOGLOBIN 10.5 g/dL (12-16); MCH 33.4 pg (26.0-34.0); MCHC 34.1 g/dL (31.0-37.0); MCV 98.1 fL (80.0-100.0); MEAN PLATELET VOLUME 12.1 fL (7.4-10.4); PLATELET COUNT 75 10x3/uL (130-400); RBC 3.14 10x6/uL (4.00-5.40); WBC 22.5 10x3/uL (4.8-10.8)
[2018-03-06 06:39] LABS: ANION GAP 11.5 mmol/L (8-16); CALCIUM 7.8 mg/dL (8.5-10.1); CARBON DIOXIDE 22.9 mmol/L (21.0-32.0); MAGNESIUM - SERUM 2.7 mg/dL (1.8-2.4)
[2018-03-06 06:51] LABS: CREATININE - SERUM 2.2 mg/dL (0.6-1.3); PHOSPHOROUS 3.9 mg/dL (2.5-4.9)
[2018-03-06 06:52] LABS: POTASSIUM - SERUM 4.4 mmol/L (3.5-5.1)
[2018-03-06 07:10] LABS: ANISOCYTOSIS OCC; LYMPHOCYTES 10 % (15-50); MONOCYTES 7 % (2-11); NEUTROPHILS 83 % (40-80); PLATELET ESTIMATE DECREASED; ROULEAUX OCC
[2018-03-06 08:10] VITALS: BP 123/62
[2018-03-06 12:12] VITALS: BP 108/55
[2018-03-06 15:33] VITALS: BP 104/50
[2018-03-06 20:39] VITALS: BP 124/58
[2018-03-06 23:37] VITALS: BP 113/56
[2018-03-07 04:34] VITALS: BP 110/57
[2018-03-07 04:56] LABS: BASOPHILS 0.1 % (0-2); EOSINOPHILS 0.2 % (0-7); HEMATOCRIT 33.5 % (36.0-48.0); HEMOGLOBIN 11.6 g/dL (12-16); IMMATURE GRANULOCYTES 0.9 % (0-5); LYMPHOCYTES 2.1 % (15-50); MCH 33.8 pg (26.0-34.0); MCHC 34.6 g/dL (31.0-37.0); MCV 97.7 fL (80.0-100.0); MEAN PLATELET VOLUME 12.4 fL (7.4-10.4); MONOCYTES 10.4 % (2-11); NEUTROPHILS 86.3 % (40-80); PLATELET COUNT 119 10x3/uL (130-400); RBC 3.43 10x6/uL (4.00-5.40); RDW 17.2 % (11.5-14.5)
[2018-03-07 05:04] LABS: ALBUMIN 1.4 g/dL (3.4-5.0); BILIRUBIN - TOTAL 3.82 mg/dL (0.2-1.3); CALCIUM 8.6 mg/dL (8.5-10.1); PROTEIN - SERUM 5.5 g/dL (6.4-8.2)
[2018-03-07 05:06] LABS: CREATININE - SERUM 3.8 mg/dL (0.6-1.3)
[2018-03-07 05:11] LABS: ANION GAP 18.3 mmol/L (8-16); CARBON DIOXIDE 17.1 mmol/L (21.0-32.0); POTASSIUM - SERUM 5.4 mmol/L (3.5-5.1)
[2018-03-07 07:30] LABS: ANION GAP 21.5 mmol/L (8-16); CALCIUM 8.9 mg/dL (8.5-10.1); CARBON DIOXIDE 14.2 mmol/L (21.0-32.0); POTASSIUM - SERUM 5.7 mmol/L (3.5-5.1)
[2018-03-07 07:48] VITALS: BP 105/49
[2018-03-07 12:39] VITALS: BP 118/55
[2018-03-08 19:07] LABS: AEROBE ID Final report (()); RESULT 1 Aerococcus urinae (())
== END 2018-03-07 22:18 | DRG 329 ==
LOC: D.MS 07:26 → D.ICU 07:26 → D.SDCHOLD 07:26 → D.ICU 17:57 → D.MS 02-24 18:12
PROVIDERS: Anesthesiology; Internal Medicine Medical Oncology; Internal Medicine Nephrology; Surgery
PROC: BF131ZZ Fluoroscopy of Gallbladder and Bile Ducts using Low Osmolar Contrast (ICD-10-PCS; 2018-02-20)
PROC: 0FT44ZZ Resection of Gallbladder, Percutaneous Endoscopic Approach (ICD-10-PCS; principal; 2018-02-20 10:00)
PROC: 0DTM0ZZ Resection of Descending Colon, Open Approach (ICD-10-PCS; 2018-02-20 10:00)
PROC: 0FB04ZX Excision of Liver, Percutaneous Endoscopic Approach, Diagnostic (ICD-10-PCS; 2018-02-20 10:00)
PROC: 0D9670Z Drainage of Stomach with Drainage Device, Via Natural or Artificial Opening (ICD-10-PCS; 2018-02-26)
PROC: 02HV33Z Insertion of Infusion Device into Superior Vena Cava, Percutaneous Approach (ICD-10-PCS; 2018-03-01)
DX: C18.2 Malignant neoplasm of ascending colon (principal); A41.9 Sepsis, unspecified organism; E43 Unspecified severe protein-calorie malnutrition; G93.40 Encephalopathy, unspecified; B18.9 Chronic viral hepatitis, unspecified; K56.7 Ileus, unspecified; A04.72 Enterocolitis due to Clostridium difficile, not specified as recurrent; F05 Delirium due to known physiological condition; E87.0 Hyperosmolality and hypernatremia; E72.20 Disorder of urea cycle metabolism, unspecified; E87.1 Hypo-osmolality and hyponatremia; N17.9 Acute kidney failure, unspecified; N39.0 Urinary tract infection, site not specified; Z51.5 Encounter for palliative care; K74.69 Other cirrhosis of liver; E87.6 Hypokalemia